=== PATIENT | female | born 1955 | race Caucasian/White ===

== ENCOUNTER 2016-06-24 15:36 | Outpatient (CLI) | payer OTHER | END 2016-06-24 15:37 | disposition home or self-care (01) | DX: Z12.31 Encounter for screening mammogram for malignant neoplasm of breast (principal) ==

== ENCOUNTER 2016-11-19 07:28 | Outpatient (CLI) | payer OTHER ==
[2016-11-19 07:47] LABS: BASOPHILS % (AUTO) 0.9 %; EOSINOPHILS # (AUTO) 0.2 10^3/uL (0.0-0.7); HCT - HEMATOCRIT 41.6 % (37.0-47.0); HGB - HEMOGLOBIN 13.9 g/dL (12.0-16.0); LYMPHOCYTES # (AUTO) 1.8 10^3/uL (1.5-3.5); LYMPHOCYTES % (AUTO) 42.6 %; MEAN CORPUSCULAR HEMOGLOBIN 30.4 pg (27.0-31.0); MEAN CORPUSCULAR HGB CONC 33.5 g/dL (32.0-36.0); MEAN CORPUSCULAR VOLUME 90.8 fL (81.0-99.0); MEAN PLATELET VOLUME 8.7 fL (7.9-10.8); MONOCYTES # (AUTO) 0.3 10^3/uL (0.0-1.0); MONOCYTES % (AUTO) 6.2 %; NEUTROPHILS % (AUTO) 46.3 %; RED BLOOD COUNT 4.58 10^6/uL (4.20-5.40); RED CELL DISTRIBUTION WIDTH 13.5 % (12.0-15.0); UNCORRECTED WHITE BLOOD COUNT 4.3 x10^3/uL; WHITE BLOOD COUNT 4.3 x10^3/uL (4.8-10.8)
[2016-11-19 08:06] LABS: ALBUMIN/GLOBULIN RATIO 1.3 (1.0-2.2); BILIRUBIN,TOTAL 0.7 mg/dL (0.2-1.0); CALCIUM 9.3 mg/dL (8.5-10.3); CREATININE 0.8 mg/dL (0.4-1.0); POTASSIUM 4.5 mmol/L (3.5-5.0); TOTAL PROTEIN 7.5 g/dL (6.7-8.2)
[2016-11-19 10:29] LABS: HEMOGLOBIN A1C 0.61 g/dL
== END 2016-11-19 07:29 | disposition home or self-care (01) ==
LOC: LAB 07:28
PROVIDERS: ATTEND Nurse Practitioner Family
DX: E13.8 Other specified diabetes mellitus with unspecified complications (principal)
CPT/HCPCS: 36415; 80053; 83036; 84443; 85025

== ENCOUNTER 2017-08-06 15:36 | Outpatient (CLI) | payer OTHER ==
--- NOTE | 2017-08-07 17:55 | Mammography Report ---
SCREENING MAMMOGRAM: 08/06/2017 CLINICAL INDICATION: A 62-year-old nulliparous patient for screening. COMPARISON: 06/2016, 09/2014, 03/2013, 01/2012, 12/2010, 11/2009. TECHNIQUE: Routine CC and MLO projections were obtained of the breasts. FINDINGS: Scattered fibroglandular tissue is present within the breasts. There are no dominant masses, suspicious microcalcifications, or secondary signs of malignancy. In comparison to the previous studies, there are no significant changes. ASSESSMENT: NO MAMMOGRAPHIC EVIDENCE OF MALIGNANCY. NO SIGNIFICANT INTERVAL CHANGES. RECOMMENDATION: Screening mammography is recommended annually. BIRADS category 1 - negative. STANDARD QUALIFYING STATEMENTS: 1. This examination was reviewed with the aid of Computed-Aided Detection (CAD). 2. A negative or benign imaging report should not delay biopsy if clinically suspicious findings are present. Consider surgical consultation if warranted. More than 5% of cancers are not identified by imaging. 3. Dense breasts may obscure an underlying neoplasm. TD: 08/07/2017 17:54
== END 2017-08-06 15:37 | disposition home or self-care (01) ==
LOC: DI 15:36
PROVIDERS: ATTEND Physician Assistant
DX: Z12.31 Encounter for screening mammogram for malignant neoplasm of breast (principal)
CPT/HCPCS: 77067

== ENCOUNTER 2018-04-29 14:43 | Outpatient (CLI) | payer OTHER ==
--- NOTE | 2018-04-30 09:33 | XRAY Report ---
Reason: LOW BACK PAIN, PAIN IN THORACIC SPINE Procedure Date: 04/29/2018 Accession Number: [id number] / [id number] Procedure: XR - Thoracic Spine 2 View CPT Code: FULL RESULT: EXAM: THORACIC SPINE RADIOGRAPHY EXAM DATE: 04/29/2018 03:17 PM. CLINICAL HISTORY: LOW BACK PAIN, PAIN IN THORACIC SPINE. COMPARISON: None. TECHNIQUE: 2 views. FINDINGS: Alignment: There is mild lateral curvature of the thoracic spine. Bones: No fractures or bone lesions. Disks: Disk heights are maintained. There are small anterior osteophytes. Soft Tissues: The visualized lungs and cardiomediastinal silhouette are normal. IMPRESSION: Mild thoracic spondylosis RADIA
--- NOTE | 2018-04-30 09:35 | XRAY Report ---
Reason: LOW BACK PAIN, PAIN IN THORACIC SPINE Procedure Date: 04/29/2018 Accession Number: [id number] / [id number] Procedure: XR - Lumbar Spine 2 View CPT Code: FULL RESULT: EXAM: LUMBOSACRAL SPINE RADIOGRAPHY EXAM DATE: 04/29/2018 03:17 PM. CLINICAL HISTORY: LOW BACK PAIN, PAIN IN THORACIC SPINE. COMPARISONS: None. TECHNIQUE: 2 views. FINDINGS: Alignment: There is mild lateral curvature of the thoracolumbar spine. Bones: Five [id number]-nymiwvp lumbar vertebral bodies are present. No fractures or bone lesions. Disks: There is mild narrowing of the L4-L5 disk space. There are small anterior osteophytes. Facets: No degenerative changes. Sacroiliac Joints: Unremarkable. Right hip prosthesis is incompletely imaged. Soft Tissues: The visualized bowel gas pattern is normal. IMPRESSION: Mild lumbar spondylosis RADIA
== END 2018-04-29 14:44 | disposition home or self-care (01) ==
LOC: DI 14:43
PROVIDERS: ATTEND Physician Assistant
DX: M47.9 Spondylosis, unspecified (principal)
CPT/HCPCS: 72070; 72100

== ENCOUNTER 2018-07-23 07:38 | Outpatient (CLI) | payer OTHER ==
--- NOTE | 2018-07-23 14:27 | Ultrasound Report ---
Reason: TRANSIENT VISUAL LOSS, BILATERAL Procedure Date: 07/23/2018 Accession Number: [id number] / [id number] Procedure: US - Carotid Doppler Complete CPT Code: FULL RESULT: EXAM: BILATERAL CAROTID AND VERTEBRAL ARTERY DUPLEX DOPPLER ULTRASOUND: EXAM DATE: 07/23/2018 08:55 AM CLINICAL HISTORY: Transient visual loss, bilateral. COMPARISON: None. TECHNIQUE: Grayscale imaging, color Doppler, and duplex spectral Doppler were used to evaluate the carotid and vertebral arteries bilaterally. Static images were obtained. FINDINGS: No significant plaque is identified in the right or left common or internal carotid arteries. Normal antegrade flow is present in bilateral vertebral arteries. VELOCITIES (cm/sec): Right CCA mid: PSV 65.4 cm/sec CCA dist: PSV 68.7 cm/sec ICA prox: PSV 60.0 cm/sec, EDV 20.6 cm/sec ICA mid: PSV 77.9 cm/sec, EDV 29.8 cm/sec ICA dist: PSV 67.8 cm/sec, EDV 26.3 cm/sec ECA: PSV 101.1 cm/sec Vert: PSV 39.8 cm/sec ICA/CCA: 1.1 Left CCA mid: PSV 64.9 cm/sec CCA dist: PSV 70.9 cm/sec ICA prox: PSV 71.9 cm/sec, EDV 23.8 cm/sec ICA mid: PSV 88.7 cm/sec, EDV 29.2 cm/sec ICA dist: PSV 75.1 cm/sec, EDV 26.3 cm/sec ECA: PSV 80.0 cm/sec Vert: PSV 41.2 cm/sec ICA/CCA: 1.25 ICA diameter stenosis: Right: 0% by velocity and 0% by NASCET criteria. Left: 0% by velocity and 0% by NASCET criteria. IMPRESSION: 1. No significant bilateral carotid artery plaquing. 2. No hemodynamically significant extracranial carotid stenosis. 3. Normal antegrade flow is present in bilateral vertebral arteries. General Recommendations: Stenosis =50% ICA - Follow-up ultrasound 6-12 months Stenosis <50% ICA - High Risk Patient with plaque - Follow-up ultrasound 1-2 years Normal Study but High Risk Patient - Follow-up ultrasound 3-5 years Management recommendations and diagnostic criteria are based on current IAC endorsed standards in Carotid Artery Stenosis: Grayscale and Doppler Ultrasound Diagnosis. Validated velocity measurements with angiographic measurements and velocity criteria are extrapolated from diameter data as defined by the Society of Radiologists in Ultrasound Consensus Conference Radiology 2003; 229;340-346. RADIA
== END 2018-07-23 07:39 | disposition home or self-care (01) ==
LOC: DI 07:38
PROVIDERS: ATTEND Nurse Practitioner Family
DX: H53.123 Transient visual loss, bilateral (principal)
CPT/HCPCS: 93880

== ENCOUNTER 2019-05-07 07:43 | Emergency (ER) | payer BC, OTHER ==
[2019-05-07 07:53] VITALS: BP 170/77
--- NOTE | 2019-05-07 08:15 | XRAY Report ---
Reason: pain/trauma Procedure Date: 05/07/2019 Accession Number: [id number] / [id number] Procedure: XR - Foot 3 View LT CPT Code: Final Report FULL RESULT: EXAM: LEFT FOOT RADIOGRAPHY EXAM DATE: 05/07/2019 08:05 AM. CLINICAL HISTORY: Pain/trauma. COMPARISON: None. TECHNIQUE: 3 views. FINDINGS: Bones: Nondisplaced avulsion fracture at the base of the fifth metatarsal. Joints: No dislocation. First metatarsal phalangeal joint osteophytosis with preserved joint space. First metatarsal phalangeal joint angle measures 29 degrees. Soft Tissues: Normal. No soft tissue swelling. IMPRESSION: 1. Avulsion fracture of the base of the fifth metatarsal. 2. Large bunion with some osteoarthritis in the first metatarsal phalangeal joint RADIA
--- NOTE | 2019-05-07 08:58 | ED Physician Documentation ---
PD HPI LOWER EXT INJURY - Stated complaint Stated Complaint: LT FOOT INJURY - Chief complaint Chief Complaint: Trauma Ext - History obtained from History obtained from: Patient - History of Present Illness PD HPI LOW EXT INJURY LOCATION: Left, Foot (base of 5th MT area, with inversion injury of the ankle.) Type of injury: Twist (inversion) Timing - onset: Last night Timing - details: Abrupt onset, Still present Worsened by: Moving, Palpating, Other (stepping) Associated symptoms: Numbness (little toe), Swelling. No: Weakness Similar symptoms before: Has not had sx before Review of Systems Skin: denies: Abrasion (s), Laceration (s) Neurologic: reports: Numbness (some in little toe). denies: Focal weakness PD PAST MEDICAL HISTORY - Past Medical History Cardiovascular: None Endocrine/Autoimmune: Other Musculoskeletal: Osteoarthritis, Osteoporosis - Past Surgical History Past Surgical History: Yes - Present Medications Home Medications: Ambulatory Orders Medication Instructions Recorded Confirmed Metformin HCl [Metformin HCl ER] 500 mg PO BID 01/15/13 01/15/13 - Allergies Allergies/Adverse Reactions: Allergies Allergy/AdvReac Type Severity Reaction Status Date / Time azithromycin [From Zithromax] Allergy Severe Edema Verified 05/07/19 07:53 - Social History Does the pt smoke?: No Smoking Status: Never smoker Does the pt drink ETOH?: Yes Does the pt have substance abuse?: No PD ED PE NORMAL - Vitals Vital signs reviewed: Yes - General General: Alert and oriented X 3, No acute distress, Well developed/nourished - Derm Derm: Normal color, Warm and dry - Extremities Extremities: Other (left foot with tenderness and swelling over the dorsolateral aspect of the mid to proximal foot. ) - Neuro Neuro: Alert and oriented X 3, No motor deficit, No sensory deficit Results - Vitals Vitals: Oxygen O2 Source Room air - Rads (name of study) left foot Radiology: Prelim report reviewed (base left foot with nondisplaced fracture prox 5th MT. incidental bunion arthritis at great toe MTP. ), EMP read contemporaneously, See rad report PD MEDICAL DECISION MAKING - ED course Complexity details: reviewed results (proximal 5th MT fracture), considered differential, d/w patient Departure - Departure Disposition: 01 Home, Self Care Clinical Impression: Fracture of metatarsal bone of left foot Qualifiers: Encounter type: initial encounter Metatarsal bone: fifth Fracture type: closed Fracture alignment: nondisplaced Qualified Code(s): S92.355A - Nondisplaced fracture of fifth metatarsal bone, left foot, initial encounter for closed fracture Condition: Stable Record reviewed to determine appropriate education?: Yes Instructions: ED Fx Foot Follow-Up: Susannah You PA [Primary Care Provider] - Zuhair Lujan MD [Provider Admit Priv/Credential] - Comments: Boot orthosis to support the foot and ankle. Crutches for partial weight bearing for comfort. Tylenol or Ibuprofen as needed for pains. Elevate and ice for swelling. You will need the boot orthosis for 4-6 weeks. Follow up with Orthopedics in about 10-14 days to ensure it is healing okay. Discharge Date/Time: 05/07/19 10:04
== END 2019-05-07 10:04 | disposition home or self-care (01) ==
LOC: ED 07:43
DX: S92.355A Nondisplaced fracture of fifth metatarsal bone, left foot, initial encounter for closed fracture (principal); X50.1XXA Overexertion from prolonged static or awkward postures, initial encounter; M21.612 Bunion of left foot; M19.072 Primary osteoarthritis, left ankle and foot
CPT/HCPCS: 99283

== ENCOUNTER 2019-07-27 19:59 | Outpatient (CLI) | payer MEDICARE | END 2019-07-27 23:59 | disposition EMS.NT | LOC: EMS 19:59 | PROVIDERS: ATTEND Surgery | DX: R45.82 Worries (principal); R03.0 Elevated blood-pressure reading, without diagnosis of hypertension; R45.0 Nervousness; R45.1 Restlessness and agitation ==

== ENCOUNTER 2019-07-28 19:19 | Emergency (ER) | payer MEDICARE ==
[2019-07-28 19:27] VITALS: BP 199/94
--- NOTE | 2019-07-28 19:30 | ED Physician Documentation ---
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 The BP was 160/94 at that time. she subsequently was evaluated by a nurse practitioner yesterday, BP was 190/95 and she was started on losartan, first dose earlier today. Late yesterday afternoon, she felt anxious and her blood pressures were 200-220 (systolic) and she called 911. She was evaluated at home by medics but declined transport. She took a dose of lorazepam and found this improved her symptoms and her blood pressure. Tonight, she again felt "fullness" in her head and found her blood pressure was 170/94. She retook it and it was 210/105 and thus came to ED for the HTN. 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 : None HEENT: None Psych: None Musculoskeletal: Osteoarthritis, Osteoporosis Derm: None - Past Surgical History Past Surgical History: Yes - Present Medications Home Medications: Ambulatory Orders Medication Instructions Recorded Confirmed Metformin HCl [Metformin HCl ER] 500 mg PO BID 01/15/13 01/15/13 - Allergies Allergies/Adverse Reactions: Allergies Allergy/AdvReac Type Severity Reaction Status Date / Time azithromycin [From Zithromax] Allergy Severe Edema Verified 07/28/19 19:22 - Social History Does the pt smoke?: No Smoking Status: Never smoker Does the pt drink ETOH?: Yes Does the pt have substance abuse?: No - Immunizations Immunizations are current?: No - POLST Patient has POLST: No PD ED PE NORMAL - Vitals Vital signs reviewed: Yes - General General: Alert and oriented X 3, No acute distress, Well developed/nourished - HEENT HEENT: PERRL, EOMI - Cardiac Cardiac: RRR, No murmur - Respiratory Respiratory: No respiratory distress, Clear bilaterally - Neuro Neuro: Alert and oriented X 3, resource conservation specialist 2-12 intact, Normal speech Eye Opening: Spontaneous Motor: Obeys Commands Verbal: Oriented GCS Score: 15 Results - Vitals Vitals: Oxygen O2 Source Room air PD MEDICAL DECISION MAKING - ED course Complexity details: considered differential, d/w patient ED course: hypertension that is asymptomatic aside from "fullness" sensation of her head (not headache per se). She just started losartan today, took one dose in the AM. I recommended she take a second dose now and start taking it BID, contact PMD in the morning to discuss whether they agree continuing with this schedule for the losartan and whether they recommend any further intervention or any testing. Emergent testing is not indicated at this time. Departure - Departure Disposition: 01 Home, Self Care Clinical Impression: Hypertension Condition: Good Instructions: ED Hypertension Conf Out Of Control Follow-Up: Susannah You PA [Primary Care Provider] - (Contact your primary care provider's office in the morning to inform them you were here and the nature of the visit.) Comments: continue the losartan but I recommend taking it as follows: 1 tablet by mouth twice per day. Contact your primary care provider to inform them of this recommendation. Discharge Date/Time: 07/28/19 19:54
== END 2019-07-28 19:54 | disposition home or self-care (01) ==
LOC: ED 19:19
DX: I10 Essential (primary) hypertension (principal)
CPT/HCPCS: 99282; 99284

== ENCOUNTER 2019-07-31 20:32 | Emergency (ER) | payer MEDICARE ==
--- NOTE | 2019-07-31 21:15 | ED Physician Documentation ---
History of Present Illness - Stated complaint Stated Complaint: HIGH BLOOD PRESSURE - Chief complaint Chief Complaint: Cardiac - History obtained from History obtained from: Patient - History of Present Illness Timing: Chronic Pain level max: 0 Pain level now: 0 - Additonal information Additional information: 64-year-old female presents to the emergency department with asymptomatic hypertension today. Seen here 3 days ago for same. She states that she was started on losartan, but notices that her blood pressure is still high. She does not have any focal neurological deficits. No difficulty with vision. No chest pain. No dyspnea. She has an appointment with her doctor on . She states sometimes her blood pressure is 160, other times it is over 200. 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 : None HEENT: None Psych: Anxiety Musculoskeletal: Osteoarthritis, Osteoporosis Derm: None - Past Surgical History Past Surgical History: Yes Ortho: Hip replacement - Present Medications Home Medications: Ambulatory Orders Medication Instructions Recorded Confirmed Metformin HCl [Metformin HCl ER] 500 mg PO BID 01/15/13 01/15/13 Duloxetine HCl 07/31/19 LORazepam [Lorazepam] 07/31/19 Losartan Potassium 25 mg ORAL BID 07/31/19 07/31/19 - Allergies Allergies/Adverse Reactions: Allergies Allergy/AdvReac Type Severity Reaction Status Date / Time azithromycin [From Zithromax] Allergy Severe Edema Verified 07/31/19 20:47 - Social History Does the pt smoke?: No Smoking Status: Never smoker Does the pt drink ETOH?: Yes Does the pt have substance abuse?: No - Immunizations Immunizations are current?: Yes - POLST Patient has POLST: No PD ED PE NORMAL - Vitals Vital signs reviewed: Yes - General General: Alert and oriented X 3, No acute distress, Well developed/nourished - HEENT HEENT: Atraumatic, PERRL, EOMI, Moist mucous membranes - Neck Neck: Supple, no meningeal sign, No bony TTP - Cardiac Cardiac: RRR, Strong equal pulses - Respiratory Respiratory: No respiratory distress, Clear bilaterally - Abdomen Abdomen: Soft, Non tender, Non distended - Back Back: No spinal TTP - Derm Derm: Warm and dry - Extremities Extremities: No edema - Neuro Neuro: Alert and oriented X 3, front end engineer 2-12 intact, No motor deficit, No sensory deficit, Normal speech Eye Opening: Spontaneous Motor: Obeys Commands Verbal: Oriented GCS Score: 15 - Psych Psych: Normal mood, Normal affect Results - Vitals Vitals: Vital Signs - 24 hr 07/31/19 07/31/19 20:43 21:16 Temperature 36.8 C Heart Rate 78 70 Respiratory 16 16 Rate Blood Pressure 207/91 H 191/90 H O2 Saturation 99 96 Oxygen O2 Source Room air PD MEDICAL DECISION MAKING - ED course Complexity details: reviewed old records, considered differential, d/w patient ED course: Patient with asymptomatic hypertension. No evidence of endorgan damage. Her blood pressure decreased on its own in the emergency department. We will have her follow-up with her doctor for further care. She has an appointment in 4 days. Patient counseled regarding signs and symptoms for which I believe and urgent re-evaluation would be necessary. Patient with good understanding of and agreement to plan and is comfortable going home at this time This document was made in part using voice recognition software. While efforts are made to proofread this document, sound alike and grammatical errors may occur. Departure - Departure Disposition: 01 Home, Self Care Clinical Impression: Hypertension Qualifiers: Hypertension type: unspecified Qualified Code(s): I10 - Essential (primary) hypertension Condition: Good Instructions: ED HTN Established Follow-Up: Susannah You PA [Primary Care Provider] - Within 1 week Comments: Continue the medication as previously prescribed. Take your blood pressure once in the morning and once at night. Keep a log and take it with you to your doctor's office. Return if you develop chest pain, focal numbness or weakness, or difficulties with your vision. Discharge Date/Time: 07/31/19 21:24
[2019-07-31 21:17] VITALS: BP 191/90
== END 2019-07-31 21:24 | disposition home or self-care (01) ==
LOC: ED 20:32
DX: I10 Essential (primary) hypertension (principal)
CPT/HCPCS: 99281; 99282

== ENCOUNTER 2020-01-28 16:59 | Emergency (ER) | payer MEDICARE ==
--- NOTE | 2020-01-28 17:52 | ED Physician Documentation ---
History of Present Illness - Stated complaint Stated Complaint: ELEVATED BP - Chief complaint Chief Complaint: Cardiac - History obtained from History obtained from: Patient - History of Present Illness Timing: Chronic Pain level max: 3 Pain level now: 2 Improved by: nothing Worsened by: nothing - Additonal information Additional information: 64-year-old female presents to the emergency department with hypertension today. This been ongoing issue for several years. Had her losartan recently increased, states her blood pressure is still high. She recently started Augmentin for a sinus infection, states that she no longer feels like she has a sinus infection. No chest pain. No shortness of breath. No focal neurological deficits. Has occasional headaches, none now. 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 : None HEENT: None Psych: Anxiety Musculoskeletal: Osteoarthritis, Osteoporosis Derm: Other - Past Surgical History Past Surgical History: Yes Ortho: Hip replacement - Present Medications Home Medications: Ambulatory Orders Medication Instructions Recorded Confirmed Metformin HCl [Metformin HCl ER] 500 mg PO BID 01/15/13 01/28/20 LORazepam [Lorazepam] 0.25 mg ORAL DAILY PM PRN 07/31/19 01/28/20 Losartan Potassium 25 mg ORAL BID 07/31/19 01/28/20 Amoxicillin/Potassium Clav 1 tab ORAL BID 01/28/20 01/28/20 [Amox-Clav 875-125 mg Tablet] Propranolol HCl 20 mg PO TID PRN 01/28/20 01/28/20 - Allergies Allergies/Adverse Reactions: Allergies Allergy/AdvReac Type Severity Reaction Status Date / Time azithromycin [From Zithromax] Allergy Severe Edema Verified 01/28/20 17:10 - Social History Does the pt smoke?: No Smoking Status: Former smoker Does the pt drink ETOH?: Yes ETOH Use: Wine Does the pt have substance abuse?: No - Immunizations Immunizations are current?: Yes - POLST Patient has POLST: No PD ED PE NORMAL - Vitals Vital signs reviewed: Yes - General General: Alert and oriented X 3, No acute distress - HEENT HEENT: PERRL, Moist mucous membranes - Neck Neck: Supple, no meningeal sign, No JVD, No bruit - Cardiac Cardiac: RRR, No murmur - Respiratory Respiratory: No respiratory distress, Clear bilaterally - Abdomen Abdomen: Soft - Derm Derm: Warm and dry - Extremities Extremities: No edema, No calf tenderness / cord - Neuro Neuro: Alert and oriented X 3, concentrator operator 2-12 intact, No motor deficit, No sensory deficit, Normal speech Eye Opening: Spontaneous Motor: Obeys Commands Verbal: Oriented GCS Score: 15 - Psych Psych: Normal mood, Normal affect Results - Vitals Vitals: Vital Signs - 24 hr 01/28/20 01/28/20 01/28/20 17:04 17:22 18:17 Temperature 36.5 C 36.6 C 36.1 C L Heart Rate 69 70 58 L Respiratory 20 14 16 Rate Blood Pressure 212/89 H 214/94 H 198/79 H O2 Saturation 99 100 100 Oxygen O2 Source Room air PD MEDICAL DECISION MAKING - ED course Complexity details: reviewed results, re-evaluated patient, considered differential, d/w patient ED course: Patient with asymptomatic hypertension. Her blood pressure here is within her past ranges. Asymptomatic otherwise. No indication for further work-up tonight. No neurological deficits. No chest pain. No shortness of breath. We will have her follow-up with her doctor for further care. Patient counseled regarding signs and symptoms for which I believe and urgent re-evaluation would be necessary. Patient with good understanding of and agreement to plan and is comfortable going home at this time This document was made in part using voice recognition software. While efforts are made to proofread this document, sound alike and grammatical errors may occur. Departure - Departure Disposition: 01 Home, Self Care Clinical Impression: Hypertension Qualifiers: Hypertension type: unspecified Qualified Code(s): I10 - Essential (primary) hypertension Condition: Good Instructions: ED HTN Established Follow-Up: INDIGO VARGAS ARNP [Primary Care Provider] - Within 1 week Comments: It is important to lower your blood pressure slowly over time. Return if you worsen. You doctor may want to consider non-beta alonzo medications for your blood presure as your heart rate runs around 60 bpm. Something such as nifedipine may work better for you. Discharge Date/Time: 01/28/20 18:27
[2020-01-28 18:18] VITALS: BP 198/79
== END 2020-01-28 18:27 | disposition home or self-care (01) ==
LOC: ED 16:59
DX: I10 Essential (primary) hypertension (principal); E11.9 Type 2 diabetes mellitus without complications; Z79.84 Long term (current) use of oral hypoglycemic drugs; Z87.891 Personal history of nicotine dependence
CPT/HCPCS: 99281; 99284

== ENCOUNTER 2020-03-02 10:32 | Outpatient (CLI) | payer MEDICARE ==
[2020-03-02 14:36] LABS: CALCIUM 9.3 mg/dL (8.5-10.3); CREATININE 1.1 mg/dL (0.4-1.0)
== END 2020-03-02 10:33 | disposition home or self-care (01) ==
LOC: LAB.S 10:32
PROVIDERS: ATTEND Internal Medicine Cardiovascular Disease
DX: I10 Essential (primary) hypertension (principal)
CPT/HCPCS: 36415; 80048

== ENCOUNTER 2020-07-04 09:28 | Outpatient (CLI) | payer MEDICARE ==
[2020-07-04 15:29] LABS: CHOL/HDL RATIO 4.2 (<4.4); CHOLESTEROL 269 mg/dL; HDL CHOLESTEROL 64 mg/dL; LDL CHOLESTEROL,CALCULATED 178 mg/dL; LDL/HDL RATIO 2.8 (<4.4); TRIGLYCERIDES 136 mg/dL; VLDL CHOLESTEROL 27 mg/dL
[2020-07-04 19:58] LABS: ESTIMATED AVERAGE GLUCOSE 126 mg/dL (70-100)
== END 2020-07-04 09:29 | disposition home or self-care (01) ==
LOC: LAB.S 09:28
PROVIDERS: ATTEND Family Medicine
DX: E78.5 Hyperlipidemia, unspecified (principal); R73.03 Prediabetes
CPT/HCPCS: 36415; 80061; 83036; 83721

== ENCOUNTER 2020-11-19 07:03 | Outpatient (CLI) | payer MEDICARE ==
[2020-11-19 16:36] LABS: ALBUMIN 4.1 g/dL (3.2-5.5); ALBUMIN/GLOBULIN RATIO 1.2 (1.0-2.2); ALKALINE PHOSPHATASE 72 IU/L (42-121); ALT ALANINE AMINOTRANSFERASE 27 IU/L (10-60); AST ASPARTATE AMINOTRANSFERASE 19 IU/L (10-42); BILIRUBIN,TOTAL 0.5 mg/dL (0.2-1.0); BUN - BLOOD UREA NITROGEN 23 mg/dL (6-20); CALCIUM 9.4 mg/dL (8.5-10.3); CARBON DIOXIDE - CO2 27 mmol/L (21-32); CHLORIDE 108 mmol/L (101-111); CHOL/HDL RATIO 2.3 (<4.4); CHOLESTEROL 176 mg/dL; CREATININE 1.1 mg/dL (0.4-1.0); GFR - MDRD 50 (>89); GLUCOSE 111 mg/dL (70-100); HDL CHOLESTEROL 78 mg/dL; LDL CHOLESTEROL,CALCULATED 84 mg/dL; LDL/HDL RATIO 1.1 (<4.4); POTASSIUM 4.7 mmol/L (3.5-5.0); SODIUM 143 mmol/L (135-145); TOTAL PROTEIN 7.5 g/dL (6.7-8.2); TRIGLYCERIDES 69 mg/dL; VLDL CHOLESTEROL 14 mg/dL
== END 2020-11-19 07:04 | disposition home or self-care (01) ==
LOC: LAB.S 07:03
PROVIDERS: ATTEND Family Medicine
DX: E78.5 Hyperlipidemia, unspecified (principal)
CPT/HCPCS: 36415; 80053; 80061; 83721

== ENCOUNTER 2021-02-05 09:57 | Outpatient (CLI) | payer MEDICARE ==
[2021-02-05 10:39] LABS: ALBUMIN 4.2 g/dL (3.2-5.5); ALBUMIN/GLOBULIN RATIO 1.3 (1.0-2.2); BILIRUBIN,TOTAL 0.7 mg/dL (0.2-1.0); CALCIUM 9.6 mg/dL (8.5-10.3); CREATININE 0.9 mg/dL (0.4-1.0); POTASSIUM 4.3 mmol/L (3.5-5.0); TOTAL PROTEIN 7.5 g/dL (6.7-8.2)
== END 2021-02-05 09:58 | disposition home or self-care (01) ==
LOC: LAB 09:57
PROVIDERS: ATTEND Nurse Practitioner Family
DX: R94.4 Abnormal results of kidney function studies (principal)
CPT/HCPCS: 36415; 80053

== ENCOUNTER 2021-02-05 10:16 | Outpatient (CLI) | payer MEDICARE ==
--- NOTE | 2021-02-05 17:20 | XRAY Report ---
PROCEDURE: Shoulder 2 View LT INDICATIONS: PAIN TECHNIQUE: 2 views of the shoulder were acquired. COMPARISON: None. FINDINGS: Bones: No acute fractures or dislocations. Moderate degenerative changes of the left acromioclavicul ar joint. Degenerative changes of the glenohumeral joint. No suspicious bony lesions. Visualized ri bs appear intact. Soft tissues: No suspicious soft tissue calcifications. There is possible soft tissue calcifications near the superolateral aspect of the left humeral head likely sequela of chronic rotator cuff calcif ic tendinopathy. IMPRESSION: Left shoulder without acute fracture or dislocation. Degenerative changes of the left ac romioclavicular and glenohumeral joints. Findings consistent with chronic rotator cuff calcific tendi nopathy. Reviewed by: Mason Foss MD on 02/05/2021 5:19 PM PDT Approved by: Mason Foss MD on 02/05/2021 5:19 PM PDT Station ID: [id number]
== END 2021-02-05 10:17 | disposition home or self-care (01) ==
LOC: DI 10:16
PROVIDERS: ATTEND Nurse Practitioner Family
DX: M19.012 Primary osteoarthritis, left shoulder (principal); R94.4 Abnormal results of kidney function studies
CPT/HCPCS: 36415; 80053

== ENCOUNTER 2021-03-10 13:09 | Outpatient (CLI) | payer MEDICARE ==
--- NOTE | 2021-03-11 12:57 | Mammography Report ---
BILATERAL DIGITAL SCREENING MAMMOGRAM 3D/2D: 03/10/2021 CLINICAL: Routine screening. Comparison is made to exams dated: 08/06/2017 mammogram, 06/24/2016 mammogram, 09/28/2014 mammogram, mammogram, and 01/12/2012 mammogram - [facility]. The tissue of both breast s is predominantly fatty. No significant masses, calcifications, or other findings are seen in either breast. There has been no significant interval change. IMPRESSION: NEGATIVE There is no mammographic evidence of malignancy. A 1 year screening mammogram is recommended. This exam was interpreted at Station ID: [id number]. NOTE: For mammograms, a report in lay terms will be sent to the patient. Approximately 15% of breast malignancies will not be visualized mammographically. In the management of a palpable breast mass, a negative mammogram must not discourage biopsy of a clinically suspicious lesion. Electronically Signed By: Emre Garcia M.D., jr/penrad:03/11/2021 09:12:36 ACR BI-RADS Category 1: Negative 3341F PARENCHYMAL PATTERN: (F) - The breast(s) demonstrate(s) diffuse fatty replacement. BI-RADS CATEGORY: (1) - 1 RECOMMENDATION: (ANNUAL) - Recommend routine annual screening mammography. [id number] 1 year screening LATERALITY: (B)
== END 2021-03-10 13:10 | disposition home or self-care (01) ==
LOC: DI.S 13:09
PROVIDERS: ATTEND Nurse Practitioner Family
DX: Z12.31 Encounter for screening mammogram for malignant neoplasm of breast (principal)

== ENCOUNTER 2021-05-07 09:55 | Outpatient (CLI) | payer MEDICARE ==
--- NOTE | 2021-05-07 10:44 | CARDIAC PROCEDURE NOTE ---
Stress Test Report Service Date: 05/07/21 Service Time: 10:30 Ordering Provider: Gisel Power NP, S Indication for Test: Assess exertional dyspnea. 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 Sometime later she reports being documented to have a tachycardia of unknown type, for which she has been seen by Dr Ball. She reports observing better BPs for several months after the increase in BP meds, but about 2 months ago her BPs started to rise again. At that time she realized she had had an interim weight gain of ~20-25 lbs, for which she has been trying to increase her activity level, increasing her walking around her home in [facility]. She has noted increasing exertional dyspnea on hills than previously, requiring her to rest to catch her breath, though she denies associated chest or abdominal discomfort, marked diaphoresis. She notes her heart beating heavily at these times, but notes the sensation is different than when she has spontaneous tachycardias, which can be associated with epigastric fullness, though no lightheadedness. -She just saw Dr Ball 5 days ago, at which time he recomended increasing her amlodipine from 5 to 10 mg daily, though she has not yet received her 10 mg tabs and has not doubled up on the 5 mg tabs. She presents today having held metoprolol for 48 hours and did not take her amlodipine this AM. Cardiac Risk Factors: Positive for longstanding hypertension, hyperlipidemia and family history of "heart disease" in her mother and cousins. She smoked cigarettes previously but quit over 25 yrs ago. She has no history of diabetes. Type of Stress Test: ETT with Echocardiography Procedure: -Exercise Treadmill Test- After signing informed consent, the patient underwent resting echo imaging and then performed treadmill exercise using a Jason protocol. The patient exercised for 6 minutes 34 seconds and achieved a peak heart rate of 146 (96 percent predicted maximum heart rate for age), and an estimated workload of 8 METS. The test was terminated due to shortness of breath, after pushing herself to achieve target HR. Resting heart rate: 69 Peak heart rate: 146 Normal response to exercise. Resting BP: 168/87 Peak BP: 231/80 Hypertensive at rest with physiologic BP response to exercise. Rhythm during exercise: Sinus rhythm throughout. Symptoms: She described significant breathlessness early in stage 2 (that became limiting), followed by some non-limiting left shoulder discomfort, that fully resolved upon assuming a recumbent position for repeat echo imaging after peak stress. EKG at rest showed normal sinus rhythm with possible left atrial abnormality. EKG at peak stress showed J-point depression with upsloping ST segments, NOT meeting diagnostic criteria for ischemia. In Recovery heart rate decreased rapidly/normally to baseline, BP decrease was slower, reaching 155/71 at 5 minutes. Echo imaging performed at rest and with stress will be reported separately. IDeandre MD, was present throughout this treadmill stress study and supervised it in its entirety. Summary: 1) Exercise tolerance slightly above average for age as evidenced by ISHA of - 9.7%. 2) Normal resting EKG. 3) Adequate level of exercise was achieved on this treadmill stress test. 4) Hypertensive at rest with further physiologic BP increase with exercise. 5) No ischemic changes by EKG criteria were seen at peak stress. 6) Echo image interpretation reveals normal left ventricular size and systolic function, with appropriate hyperdynamic augmentation of all segments with exercise, indicating no evidence of prior infarct or inducible ischemia. See separate report for more details. CONCLUSIONS: 1) Low risk treadmill stress echocardiogram, without EKG or echo evidence of inducible ischemia. 2) There was left shoulder discomfort described late in the exercise that resolved immediately with discontinuation and lying flat, not appearing ischemic in mechanism. 3) Exertional dyspnea may be multi-factorial, including a contribution of subacute weight gain. Some suggestions for dietary approaches were offered.
== END 2021-05-07 09:56 | disposition home or self-care (01) ==
LOC: DI 09:55
PROVIDERS: ATTEND Registered Nurse
DX: R06.09 Other forms of dyspnea (principal); Z87.891 Personal history of nicotine dependence; I10 Essential (primary) hypertension; E78.5 Hyperlipidemia, unspecified; Z82.49 Family history of ischemic heart disease and other diseases of the circulatory system
CPT/HCPCS: 93016; 93017; 93018; 93350

== ENCOUNTER 2021-06-21 08:23 | Outpatient (CLI) | payer MEDICARE ==
[2021-06-21 15:23] LABS: BASOPHILS % (AUTO) 0.8 %; EOSINOPHILS # (AUTO) 0.3 10^3/uL (0.0-0.7); EOSINOPHILS % (AUTO) 5.7 %; HCT - HEMATOCRIT 38.9 % (37.0-47.0); HGB - HEMOGLOBIN 12.3 g/dL (12.0-16.0); LYMPHOCYTES # (AUTO) 2.2 10^3/uL (1.5-3.5); LYMPHOCYTES % (AUTO) 42.2 %; MEAN CORPUSCULAR HEMOGLOBIN 29.4 pg (27.0-31.0); MEAN CORPUSCULAR HGB CONC 31.6 g/dL (32.0-36.0); MEAN CORPUSCULAR VOLUME 92.8 fL (81.0-99.0); MEAN PLATELET VOLUME 11.2 fL (7.9-10.8); MONOCYTES # (AUTO) 0.3 10^3/uL (0.0-1.0); MONOCYTES % (AUTO) 6.3 %; NEUTROPHILS # (AUTO) 2.4 10^3/uL (1.5-6.6); NEUTROPHILS % (AUTO) 44.8 %; PLT - PLATELET COUNT 274 10^3/uL (130-450); RED BLOOD COUNT 4.19 10^6/uL (4.20-5.40); RED CELL DISTRIBUTION WIDTH 13.3 % (12.0-15.0); WHITE BLOOD COUNT 5.3 x10^3/uL (4.8-10.8)
[2021-06-21 17:09] LABS: ALBUMIN 4.1 g/dL (3.2-5.5); ALKALINE PHOSPHATASE 76 IU/L (42-121); ALT ALANINE AMINOTRANSFERASE 94 IU/L (10-60); AST ASPARTATE AMINOTRANSFERASE 43 IU/L (10-42); BILIRUBIN,TOTAL 0.6 mg/dL (0.2-1.0); BUN - BLOOD UREA NITROGEN 24 mg/dL (6-20); CALCIUM 9.3 mg/dL (8.5-10.3); CARBON DIOXIDE - CO2 26 mmol/L (21-32); CHLORIDE 104 mmol/L (101-111); CREATININE 0.8 mg/dL (0.4-1.0); GFR - MDRD 71 (>89); GLUCOSE 113 mg/dL (70-100); POTASSIUM 4.6 mmol/L (3.5-5.0); SODIUM 138 mmol/L (135-145); TOTAL PROTEIN 7.2 g/dL (6.7-8.2)
[2021-06-21 17:10] LABS: ALBUMIN/GLOBULIN RATIO 1.3 (1.0-2.2); CHOLESTEROL 143 mg/dL; HDL CHOLESTEROL 71 mg/dL; LDL CHOLESTEROL,CALCULATED 61 mg/dL; LDL/HDL RATIO 0.9 (<4.4); TRIGLYCERIDES 54 mg/dL; VLDL CHOLESTEROL 11 mg/dL
[2021-06-21 17:19] LABS: THYROID STIMULATING HORMONE 1.96 uIU/mL (0.34-5.60)
[2021-06-21 17:21] LABS: FREE T4 (FREE THYROXINE) 0.74 ng/dL (0.58-1.64)
[2021-06-21 18:44] LABS: ESTIMATED AVERAGE GLUCOSE 134 mg/dL (70-100); HEMOGLOBIN A1c% 6.3 % (4.27-6.07)
== END 2021-06-21 08:24 | disposition home or self-care (01) ==
LOC: LAB.S 08:23
PROVIDERS: ATTEND Nurse Practitioner Family
DX: R73.03 Prediabetes (principal); E78.5 Hyperlipidemia, unspecified; I10 Essential (primary) hypertension
CPT/HCPCS: 36415; 80053; 80061; 83036; 83721; 84439; 84443; 85025

== ENCOUNTER 2021-10-02 08:00 | Outpatient (CLI) | payer MEDICARE ==
--- NOTE | 2021-10-02 22:20 | XRAY Report ---
PROCEDURE: Finger(s) RT INDICATIONS: CRUSHING INJURY OF RIGHT INDEX FINGER TECHNIQUE: AP hand, 3 views of the sec finger(s) acquired. COMPARISON: None FINDINGS: Bones: Significant arthritic changes noted at the second DIP joint. There are areas of ossification w ith lucency particularly at the base of the distal phalanx. There is significant joint space narrowin g. No suspicious bony lesions. Soft tissues: No suspicious soft tissue calcifications. IMPRESSION: Significant arthritic change at the second DIP joint. There are areas of calcification with lucency s uggestive of fracture, which may be through degenerative osteophytes. However, lateral views also sug gestive fracture extending to the articular surface. Short interval imaging follow-up is recommended. Reviewed by: Mindy Blandon MD on 10/02/2021 10:19 PM PDT Approved by: Mindy Blandon MD on 10/02/2021 10:19 PM PDT Station ID: [id number]
== END 2021-10-02 23:59 | disposition home or self-care (01) ==
LOC: DI.S 08:00
PROVIDERS: ATTEND Registered Nurse
DX: S67.190A Crushing injury of right index finger, initial encounter (principal); M19.041 Primary osteoarthritis, right hand

== ENCOUNTER 2022-10-16 12:28 | Outpatient (CLI) | payer MEDICARE ==
--- NOTE | 2022-10-17 08:33 | Ultrasound Report ---
PROCEDURE: Chest INDICATIONS: MASS OR LUMP OF TRUNK. Upper back pain, burning, tingling at previous scar site. TECHNIQUE: Real-time scanning was performed and tenorio scale and color Doppler images were obtained. COMPARISON: None. FINDINGS: At the patient indicated area of clinical concern, the soft tissues of the left upper back adjacent t o the prior surgical scar, no focal sonographic abnormality is visualized. IMPRESSION: At the patient indicated area of clinical concern, the soft tissues of the left upper back adjacent t o the prior surgical scar, no focal sonographic abnormality is visualized. Clinical follow-up is haroldo mmended, if indicated repeat imaging or CT or MRI could be obtained for further evaluation. Reviewed by: Luis Dumont MD on 10/17/2022 8:32 AM PDT Approved by: Luis Dumont MD on 10/17/2022 8:32 AM PDT Station ID: [id number]
== END 2022-10-16 12:29 | disposition home or self-care (01) ==
LOC: DI 12:28
PROVIDERS: ATTEND Internal Medicine
DX: R22.2 Localized swelling, mass and lump, trunk (principal)

== ENCOUNTER 2023-01-05 09:44 | Outpatient (CLI) | payer MEDICARE ==
--- NOTE | 2023-01-06 13:08 | Mammography Report ---
BILATERAL DIGITAL SCREENING MAMMOGRAM 3D/2D: 01/05/2023 CLINICAL: Routine screening. Comparison is made to exams dated: 03/10/2021 mammogram, 08/06/2017 mammogram, 06/24/2016 mammogram, and 09/28/2014 mammogram - [facility]. There are scattered areas of fibroglandular density in both breasts (category b / 25%-50% glandular t issue). There is a 0.4 cm oval equal density focal asymmetry in the right breast at 11 o'clock middle depth. This is more prominent and increased in size. No other significant masses, calcifications, or other findings are seen in either breast. IMPRESSION: INCOMPLETE: NEEDS ADDITIONAL IMAGING EVALUATION The 0.4 cm oval equal density focal asymmetry in the right breast is indeterminate. Additional views with possible ultrasound are recommended. Based on the Tyrer Cuzick model (a risk assessment model) the patients lifetime risk is 6.2% and her 10 year risk is 3.7%. According to the ACR, ACS, and NCCN guidelines, an annual breast MRI exam karina g with mammogram is recommended if the patients lifetime risk is 20% or greater. This exam was interpreted at Station ID: [id number]. NOTE: For mammograms, a report in lay terms will be sent to the patient. Approximately 15% of breast malignancies will not be visualized mammographically. In the management of a palpable breast mass, a negative mammogram must not discourage biopsy of a clinically suspicious lesion. Electronically Signed By: Mason Foss M.D. aty/:01/05/2023 16:11:37 ACR BI-RADS Category 0: Incomplete 3340F PARENCHYMAL PATTERN: (A) - The breast(s) demonstrate(s) scattered fibroglandular densities. BI-RADS CATEGORY: (0) - 0 Mammo and [place] [id number] Immediate follow-up LATERALITY: (R)
== END 2023-01-05 09:45 | disposition home or self-care (01) ==
LOC: DI.S 09:44
DX: Z12.31 Encounter for screening mammogram for malignant neoplasm of breast (principal); R92.8 Other abnormal and inconclusive findings on diagnostic imaging of breast

== ENCOUNTER 2023-01-19 10:26 | Outpatient (CLI) | payer MEDICARE ==
--- NOTE | 2023-01-20 13:06 | Mammography Report ---
UNILATERAL RIGHT DIGITAL DIAGNOSTIC MAMMOGRAM 3D/2D: 01/19/2023 CLINICAL: Patient returns today to evaluate a focal asymmetry in the right breast. Comparison is made to exams dated: 01/05/2023 mammogram, 03/10/2021 mammogram, 08/06/2017 mammogram, 06/05 mammogram, 09/28/2014 mammogram, and 03/31/2013 mammogram - [facility]. There are scattered areas of fibroglandular density in the right breast (category b / 25%-50% glandul ar tissue). The focal asymmetry in the right breast upper outer quadrant at 11 o'clock middle depth is seen on ad ditional views. The focal asymmetry measures 4 mm. The finding is stable since 03/10/2021. No other significant masses, calcifications, or other findings are seen in the breast. IMPRESSION: INCOMPLETE: NEEDS ADDITIONAL IMAGING EVALUATION Right breast upper outer quadrant 11 o'clock focal asymmetry, mammographically stable since at least 03/10/2021. Recommend further evaluation with targeted right breast ultrasound, which will immediately follow this exam. Based on the Tyrer Cuzick model (a risk assessment model) the patients lifetime risk is 6.2% and her 10 year risk is 3.7%. According to the ACR, ACS, and NCCN guidelines, an annual breast MRI exam karina g with mammogram is recommended if the patients lifetime risk is 20% or greater. This exam was interpreted at Station ID: [id number]. NOTE: For mammograms, a report in lay terms will be sent to the patient. Approximately 15% of breast malignancies will not be visualized mammographically. In the management of a palpable breast mass, a negative mammogram must not discourage biopsy of a clinically suspicious lesion. Electronically Signed By: Torri Mendez M.D. esb/:01/20/2023 00:49:00 ACR BI-RADS Category 0: Incomplete 3340F PARENCHYMAL PATTERN: (A) - The breast(s) demonstrate(s) scattered fibroglandular densities. BI-RADS CATEGORY: (0) - 0 Ultrasound [id number] Immediate follow-up LATERALITY: (B)
--- NOTE | 2023-01-20 13:06 | Ultrasound Report ---
LIMITED ULTRASOUND OF RIGHT BREAST: 01/19/2023 CLINICAL: Patient returns today to evaluate a focal asymmetry in the right breast. Comparison is made to exams dated: 01/19/2023 mammogram, 01/05/2023 mammogram, 03/10/2021 mammogram, mammogram, 06/24/2016 mammogram, and 09/28/2014 mammogram - [facility]. Ultrasound of the right breast 11 o'clock region was performed. Selby scale images of the real-time e xamination were reviewed. No sonographic correlate for mammographic focal asymmetry is identified at 11 o'clock, 7 cm from the nipple. IMPRESSION: BENIGN No sonographic correlate identified for mammographic focal asymmetry. Mammographically the focal asym metry has been stable since at least 03/10/2021. Given nearly 2 year stability, this finding is consis tent with a benign process. A 1 year screening mammogram is recommended. Findings and recommendations were conveyed to the patient during today's evaluation. This exam was interpreted at Station ID: [id number]. Electronically Signed By: Torri castanonb/:01/20/2023 00:58:11 letter sent: No_Letter Ultrasound BI-RADS: 2 Benign BI-RADS CATEGORY: (2) - 2 Mammogram [id number] 1 year screening LATERALITY: (B)
== END 2023-01-19 10:27 | disposition home or self-care (01) ==
LOC: DI 10:26
PROVIDERS: ATTEND Nurse Practitioner Family
DX: R92.8 Other abnormal and inconclusive findings on diagnostic imaging of breast (principal); R92.321 Mammographic fibroglandular density, right breast

== ENCOUNTER 2023-02-25 10:26 | Outpatient (CLI) | payer MEDICARE ==
--- NOTE | 2023-02-25 11:21 | DEXA Report ---
PROCEDURE: Dexa Spine and/or Hip INDICATIONS: OSTEOPENIA TECHNIQUE: Dual energy x-ray absorptiometry (DEXA) was performed in the regions detailed below. COMPARISON: None. FINDINGS: Lumbar Spine: Bone Mineral Density 1.165 g/cm/cm,T score -0.1. Normal Left Femoral Neck: Bone Mineral Density 0.867 g/cm/cm, T score -1.2. Osteopenia Left Total Hip: Bone Mineral Density 0.882 g/cm/cm,T score -1.0. Normal (T score greater or equal to -1.0: NORMAL) (T score from -1.1 to -2.4: OSTEOPENIA) (T score less than or equal to -2.5 to: OSTEOPOROSIS) IMPRESSION: Osteopenia Patients with diagnosis of osteoporosis or osteopenia should have regular bone mineral density assess ment. For those eligible for Medicare, routine testing is allowed once every 2 years. Testing frequ ency can be increased for patients who have rapidly progressing disease or for those who are receivin g medical therapy to restore bone mass. Reviewed by: Geronimo Martinez MD on 02/25/2023 10:20 AM ENRIQUE Approved by: Geronimo Martinez MD on 02/25/2023 10:20 AM [facility] Station ID: [id number]
== END 2023-02-25 10:27 | disposition home or self-care (01) ==
LOC: DI 10:26
PROVIDERS: ATTEND Nurse Practitioner Family
DX: M85.88 Other specified disorders of bone density and structure, other site (principal)

== ENCOUNTER 2023-06-26 07:00 | Outpatient (CLI) | payer MEDICARE ==
--- NOTE | 2023-06-26 16:25 | XRAY Report ---
PROCEDURE: Lumbar Spine 2-3V INDICATIONS: BACK PAIN TECHNIQUE: 2 views of the lumbar spine were acquired. COMPARISON: Lumbar spine radiographs 04/29/2018 FINDINGS: Bones: 5 [id number] vertebrae are present. 2 mm grade 1 retrolisthesis at L2-3. Mild diffuse os teopenia. Multilevel disc space narrowing and degenerative endplate changes are seen. There is multil evel facet hypertrophy. No vertebral body compression fractures. No suspicious bony lesions. Right arthroplasty is present. Soft tissues: Overlying bowel gas pattern is normal. Mild aortic atherosclerotic calcifications. IMPRESSION: 1.No acute osseous abnormality. If symptoms persist or there is continued clinical concern, further e valuation with MRI or CT may be helpful. 2.Mild to moderate multilevel spondylosis. Reviewed by: Luis Woodruff MD on 06/26/2023 4:23 PM PDT Approved by: Luis Woodruff MD on 06/26/2023 4:23 PM PDT Station ID: [id number]
== END 2023-06-26 23:59 | disposition home or self-care (01) ==
LOC: DI.S 07:00
PROVIDERS: ATTEND Emergency Medicine
DX: M47.816 Spondylosis without myelopathy or radiculopathy, lumbar region (principal)

== ENCOUNTER 2023-11-03 07:00 | Outpatient (CLI) | payer MEDICARE ==
--- NOTE | 2023-11-03 20:11 | XRAY Report ---
PROCEDURE: Hand 3+V LT INDICATIONS: LACERATION WITH FOREIGN BODY TO LEFT HAND TECHNIQUE: 3 views of the hand(s) acquired. COMPARISON: None. FINDINGS: Bones: No fractures or dislocations. Mild diffuse inflammatory joint degeneration. Moderate first CM C joint degeneration. No suspicious bony lesions. Soft tissues: No suspicious soft tissue calcifications or masses. IMPRESSION: No acute osseous abnormality. No radiopaque foreign bodies are seen. Reviewed by: Bayron Calix MD on 11/03/2023 8:09 PM PDT Approved by: Bayron Calix MD on 11/03/2023 8:09 PM PDT Station ID: [id number]
== END 2023-11-03 23:59 | disposition home or self-care (01) ==
LOC: DI.S 07:00
PROVIDERS: ATTEND Emergency Medicine
DX: S61.422A Laceration with foreign body of left hand, initial encounter (principal)